=== PATIENT | female | born 1995 | race Caucasian/White ===

== ENCOUNTER 2017-08-12 10:16 | Emergency (ER) | payer OTHER, SELFPAY ==
[2017-08-12] MEDS ORDERED: Ketorolac Tromethamine 30 MG/ML VIAL ONE (10:33)
[2017-08-12 10:45] LABS: #Basophils 0.1 thou/uL (0.0-0.2); #Eosinphils 0.2 thou/uL (0.0-0.7); #Lymphocytes 2.3 thou/uL (1.20-3.40); #Monocytes 0.5 thou/uL (0.11-0.59); #Neutrophils 2.9 thou/uL (1.40-6.50); %Basophils 1.8 % (0.0-1.0); %Eosinophils 3.5 % (0.0-10.0); %Lymphocytes 38.5 % (21.0-51.0); %Monocytes 8.2 % (0.0-10.0); %Neutrophils 48.1 % (42.0-75.0); Hemoglobin 12.7 g/dL (12.0-16.0); Mean Corpuscular HGB CONC 33.5 g/dL (32.0-36.0); Mean Corpuscular Hemoglobin 30.9 pg (27.0-31.0); Mean Corpuscular Volume 92.2 fl (81.0-99.0); Mean Platelet Volume 7.1 fL (7.4-10.4); Platelet Count 308 thou/uL (130-400); RBC Distribution Width 11.6 % (11.5-14.5); Red Blood Cell (RBC) Count 4.09 mill/uL (4.20-5.40)
[2017-08-12 11:02] LABS: ALT (SGPT) 17 U/L (8-55); Albumin 4.1 g/dL (3.5-5.0); Alkaline Phosphatase 69 U/L (40-150); Anion Gap 17 mmol/L (10-20); BUN (Urea Nitrogen) 11 mg/dL (7.0-18.7); Bilirubin, Total 0.5 mg/dL (0.2-1.2); CK (CPK) 78 U/L (29-168); Calc. Creatinine Clearance 0 mL/min (70-130); Calcium 8.8 mg/dL (7.8-10.44); Carbon Dioxide 22 mmol/L (22-29); Chloride 106 mmol/L (98-107); Estimated GFR-MDRD Greater than 90; Globulin 3.3 g/dL (2.4-3.5); Glucose 89 mg/dL (70-105); Lipase 27 U/L (8-78); Potassium 4.7 mmol/L (3.5-5.1); Protein, Total 7.4 g/dL (6.0-8.3); Sodium 140 mmol/L (136-145)
[2017-08-12 11:07] LABS: AST (SGOT) 25 U/L (5-34)
[2017-08-12 11:09] LABS: CKMB 1.1 ng/mL (0-6.6)
[2017-08-12 11:38] LABS: Troponin I Less than 0.010 ng/mL (< 0.028)
--- NOTE | 2017-08-12 11:58 | RAD ---
CHEST UPRIGHT PORTABLE 1 VIEW: HISTORY: A 21-year-old with a history of chest pain. FINDINGS: Heart size is normal. The lungs are clear. IMPRESSION: No acute intrathoracic disease. No evidence for pneumonia. POS: [facility]
[2017-08-12] MEDS ORDERED: Albuterol Sulfate 2.5 mg/0.5 ml Neb ONE (15:08)
[2017-08-12] MEDS ORDERED: Levalbuterol HCl 1.25 MG/0.5 ML NEB ONE (15:26)
== END 2017-08-12 12:00 | disposition home or self-care (01) ==
LOC: MADERS 10:16
DX: R07.89 Other chest pain (principal); I10 Essential (primary) hypertension; F32.9 Major depressive disorder, single episode, unspecified
CPT/HCPCS: 71045; 80053; 82550; 82553; 83690; 84484; 85025; 85379; 93005; J1885; J7611; J7612